=== PATIENT | female | born 1955 | race Caucasian/White ===

== ENCOUNTER → 2017-08-04 | Outpatient (CLI) | payer OTHER ==
[~2017-08-04] MED LIST: LEVO25TA57 PO; MONT10TA PO; PANT40TA65 PO; PREMARIN
== END ==
LOC: RESP 06:42
PROVIDERS: ATTEND Emergency Medicine
DX: R07.9 Chest pain, unspecified (principal); R94.39 Abnormal result of other cardiovascular function study
CPT/HCPCS: 93017